=== PATIENT | female | born 1985 | race Caucasian/White ===

== ENCOUNTER 2020-06-28 00:01 | Emergency (ER) | payer OTHER ==
[~2020-06-28] VITALS: Ht 157.5 cm; Wt 79.8 kg
[2020-06-28] MEDS ORDERED: ADIPEX-P37.5 MG PO (00:09)
[2020-06-28] MEDS ORDERED: METFORMIN HCL500 MG PO (00:20)
[2020-06-28] MEDS ORDERED: ABILIFY 2 MG2 M1 PO (00:20)
[2020-06-28] MEDS ORDERED: LEXAPRO20 MG PO (00:20)
[2020-06-28 01:13] LABS: ABSOLUTE NEUTROPHILS 7.3 thou/uL (1.4-8.2); BASOPHILS 0.9 % (0.0-2.0); EOSINOPHILS 0.3 % (0.0-3.0); HEMATOCRIT 39.5 % (37.0-47.0); HEMOGLOBIN 12.4 gm/dL (12.0-15.0); LYMPHOCYTES 20.6 % (24.0-44.0); MCH 26.7 pg (26.0-34.0); MCHC 31.4 g/dL (28.0-37.0); MCV 85.1 fL (80.0-100.0); MONOCYTES 4.5 % (1.0-8.0); PLATELET COUNT 284 thou/uL (150-400); POLYS 73.7 % (36.0-66.0); RBC 4.64 mil/uL (4.20-5.00); RDW 15.1 % (10.5-14.5); WBC 9.9 thou/uL (4.0-11.0)
[2020-06-28 01:19] LABS: CALCIUM 8.1 mg/dL (8.5-10.1); CREATININE 0.7 mg/dL (0.6-1.0)
[2020-06-28 01:20] LABS: POTASSIUM 5.2 mmol/L (3.5-5.1)
[2020-06-28 01:25] LABS: ALBUMIN 2.9 g/dL (3.4-5.0); TOTAL BILIRUBIN 0.4 mg/dL (0.2-1.0); TOTAL PROTEIN 6.3 g/dL (6.4-8.2)
[2020-06-28] MEDS ORDERED: NORCO5 PO (06:45)
[2020-06-28] MEDS ORDERED: ZOFRAN ODT4 MG PO (06:45)
[2020-06-28 06:53] VITALS: BP 98/68
--- NOTE | 2020-06-29 06:48 | EKG ---
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
== END 2020-06-28 06:58 | disposition home or self-care (01) ==
LOC: ER 00:01
PROVIDERS: Emergency Medicine
DX: R10.13 Epigastric pain (principal); R10.11 Right upper quadrant pain; R07.89 Other chest pain; R11.10 Vomiting, unspecified